=== PATIENT | male | born 1960 | race Caucasian/White ===

== ENCOUNTER 2024-06-12 20:19 | Observation (INO) | payer BC ==
[2024-06-12] MEDS ORDERED: dilTIAZem 25 MG/5 ML VIAL ONE (21:05)
[2024-06-12 21:12] LABS: #Basophils Less than 0.03 10x3/uL (0.0-0.2); %Basophils 0.2 % (0.0-1.0); %Eosinophils 0.6 % (0.0-10.0); %Lymphocytes 2.6 % (21.0-51.0); %Monocytes 3.8 % (0.0-10.0); %Neutrophils 92.2 % (42.0-75.0); Hematocrit 41.3 % (42.0-52.0); Hemoglobin 13.6 g/dL (14.0-18.0); Mean Corpuscular HGB CONC 32.9 g/dL (32.0-36.0); Mean Corpuscular Hemoglobin 35.2 pg (27.0-31.0); Mean Platelet Volume 9.6 fL (7.4-10.4); Platelet Count 352 10x3/uL (130-400); RBC Distribution Width 11.7 % (11.5-14.5); Red Blood Cell (RBC) Count 3.86 mill/uL (4.70-6.10)
[2024-06-12 21:31] LABS: Prothrombin Time 13.4 sec (12.0-14.7)
[2024-06-12 21:32] LABS: PTT 31.1 sec (22.9-36.1)
[2024-06-12 21:33] LABS: ALT (SGPT) 66 U/L (8-55); AST (SGOT) 33 U/L (5-34); Albumin 3.4 g/dL (3.4-4.8); Alkaline Phosphatase 61 U/L (40-110); Anion Gap 17 mmol/L (10-20); BUN (Urea Nitrogen) 20 mg/dL (8.4-25.7); Bilirubin, Total 0.6 mg/dL (0.2-1.2); Calc. Creatinine Clearance 0 mL/min (70-130); Calcium 9.7 mg/dL (7.8-10.44); Carbon Dioxide 24 mmol/L (23-31); Chloride 104 mmol/L (98-107); Estimated GFR 79; Globulin 3.7 g/dL (2.4-3.5); Glucose 139 mg/dL (80-115); Potassium 4.6 mmol/L (3.5-5.1); Protein, Total 7.1 g/dL (5.8-8.1); Sodium 140 mmol/L (136-145)
[2024-06-12 21:46] LABS: Troponin I 0.241 ng/mL (< 0.028)
[2024-06-12] MEDS ORDERED: Amiodarone 150 MG/3 ML VIAL ONE (22:10)
[2024-06-12] MEDS ORDERED: Sodium Chloride 0.9% 100 ML ONE (22:11)
[2024-06-12] MEDS ORDERED: Aspirin Chewable 81 MG TAB ONE (22:18)
[2024-06-12 23:59] VITALS: BMI 31.4
[2024-06-13] MEDS: Amiodarone 450 MG, Admixture Fee 1 EACH in Dextrose 5% in Water 250 ML IVPB SCH
[2024-06-13 00:28] LABS: Troponin I 0.209 ng/mL (< 0.028)
[2024-06-13] MEDS ORDERED: Ondansetron PF 4 MG/2 ML Vial IVP PRN (03:22)
[2024-06-13 04:20] LABS: #Basophils 0.03 10x3/uL (0.0-0.2); %Basophils 0.4 % (0.0-1.0); %Eosinophils 2.2 % (0.0-10.0); %Lymphocytes 6.8 % (21.0-51.0); %Monocytes 8.9 % (0.0-10.0); %Neutrophils 81.2 % (42.0-75.0); Hematocrit 34.5 % (42.0-52.0); Hemoglobin 11.6 g/dL (14.0-18.0); Mean Corpuscular HGB CONC 33.6 g/dL (32.0-36.0); Mean Corpuscular Hemoglobin 35.2 pg (27.0-31.0); Mean Corpuscular Volume 104.5 fL (78.0-98.0); Mean Platelet Volume 10.6 fL (7.4-10.4); Platelet Count 373 10x3/uL (130-400); RBC Distribution Width 11.9 % (11.5-14.5)
[2024-06-13 04:45] LABS: Anion Gap 15 mmol/L (10-20); BUN (Urea Nitrogen) 21 mg/dL (8.4-25.7); Calc. Creatinine Clearance 131 mL/min (70-130); Carbon Dioxide 23 mmol/L (23-31); Cardiac Risk 4.3 (Less than 4.5); Chloride 105 mmol/L (98-107); Cholesterol 128 mg/dl (< 200 Desired); Estimated GFR 98; Glucose 104 mg/dL (80-115); HDL Cholesterol 30 mg/dL (>60 Neg Risk); LDL Cholesterol, Calculated 81 mg/dL; Potassium 5.7 mmol/L (3.5-5.1); Sodium 137 mmol/L (136-145); Triglycerides 85 mg/dL (Less than 150)
[2024-06-13 04:46] LABS: Troponin I 0.229 ng/mL (< 0.028)
[2024-06-13] MEDS ORDERED: Famotidine 20 MG TAB ONE (08:31)
[2024-06-13] MEDS ORDERED: Enoxaparin 40 MG (0.4 mL) SYRINGE ONE (08:32)
[2024-06-13] MEDS: Enoxaparin 40 MG (0.4 mL) SYRINGE SC SCH (08:35)
[2024-06-13] MEDS: Famotidine 20 MG TAB PO SCH (08:35)
[2024-06-13] MEDS ORDERED: Aspirin 81 mg Enteric Coated Tablet ONE (08:41)
[2024-06-13] MEDS: Aspirin 81 mg Enteric Coated Tablet PO SCH (08:42)
[2024-06-13 08:44] VITALS: BP 132/67; TEMP 97.8
[2024-06-13 09:00] LABS: Potassium 4.1 mmol/L (3.5-5.1)
[2024-06-13 09:04] LABS: Troponin I 0.253 ng/mL (< 0.028)
[2024-06-13] MEDS: Ezetimibe 10 MG TAB PO SCH (09:30)
[2024-06-13 11:52] LABS: Troponin I 0.259 ng/mL (< 0.028)
[2024-06-13] MEDS ORDERED: Amiodarone 200 MG TAB PO SCH (15:00)
[2024-06-13] MEDS ORDERED: Atorvastatin Calcium 40 MG TAB PO SCH (21:00)
[2024-06-20] MEDS ORDERED: Amiodarone 200 MG TAB PO SCH (21:00)
[2024-07-05] MEDS ORDERED: Amiodarone 200 MG TAB PO SCH (09:00)
== END 2024-06-13 12:37 | disposition home or self-care (01) ==
LOC: ERS 20:19 → ERHOLD 22:15 → INTOOBSV 22:15 → ERHOLD 22:20
PROVIDERS: ADMIT Hospitalist; ATTEND Student in an Organized Health Care Education/Training Program
DX: I48.92 Unspecified atrial flutter (principal); I25.10 Atherosclerotic heart disease of native coronary artery without angina pectoris; R00.0 Tachycardia, unspecified; I49.3 Ventricular premature depolarization; G70.00 Myasthenia gravis without (acute) exacerbation; E78.5 Hyperlipidemia, unspecified; I10 Essential (primary) hypertension; E03.9 Hypothyroidism, unspecified; I48.91 Unspecified atrial fibrillation; Z95.1 Presence of aortocoronary bypass graft; Z79.82 Long term (current) use of aspirin; Z88.0 Allergy status to penicillin
CPT/HCPCS: 36415; 71045; 80048; 80053; 80061; 84443; 84484; 85025; 85610; 85730; 93005; 96374; 96375; G0378; J0282; J1650; J7070

== ENCOUNTER 2024-06-19 10:52 | Day surgery (SDC) | payer BC ==
[2024-06-16 11:27] VITALS: BMI 30.4
[2024-06-19 12:10] LABS: #Basophils 0.06 10x3/uL (0.0-0.2); %Basophils 0.6 % (0.0-1.0); %Eosinophils 3.6 % (0.0-10.0); %Monocytes 10.1 % (0.0-10.0); %Neutrophils 77.4 % (42.0-75.0); Hematocrit 37.4 % (42.0-52.0); Hemoglobin 12.2 g/dL (14.0-18.0); Mean Corpuscular HGB CONC 32.6 g/dL (32.0-36.0); Mean Corpuscular Hemoglobin 35.1 pg (27.0-31.0); Mean Corpuscular Volume 107.5 fL (78.0-98.0); Mean Platelet Volume 9.1 fL (7.4-10.4); Platelet Count 400 10x3/uL (130-400); RBC Distribution Width 12.2 % (11.5-14.5); Red Blood Cell (RBC) Count 3.48 mill/uL (4.70-6.10)
[2024-06-19 12:30] LABS: Anion Gap 12 mmol/L (10-20); BUN (Urea Nitrogen) 19 mg/dL (8.4-25.7); Calc. Creatinine Clearance 129 mL/min (70-130); Calcium 9.5 mg/dL (7.8-10.44); Carbon Dioxide 27 mmol/L (23-31); Chloride 107 mmol/L (98-107); Estimated GFR 97; Glucose 89 mg/dL (80-115); INR-International Normal Ratio 1.1; Potassium 3.8 mmol/L (3.5-5.1); Prothrombin Time 13.8 sec (12.0-14.7); Sodium 142 mmol/L (136-145)
[2024-06-19] MEDS ORDERED: Rocuronium Bromide 10 MG/ML (10ML VIAL) ONE (12:30)
[2024-06-19 12:31] LABS: PTT 30.5 sec (22.9-36.1)
[2024-06-19] MEDS ORDERED: fentaNYL 50 mcg/mL 1 mL Vial ONE (13:47)
[2024-06-19] MEDS ORDERED: PROPOFOL 20 ML ONE (13:47)
[2024-06-19] MEDS ORDERED: Ondansetron PF 4 MG/2 ML Vial ONE (13:47)
[2024-06-19] MEDS ORDERED: Hydrocortisone Sod Succ/PF 100 mg/2 ml Vial ONE (13:47)
[2024-06-19] MEDS ORDERED: Vasopressin 20 UNITS/ML VIAL ONE (14:36)
[2024-06-19] MEDS ORDERED: Phenylephrine 40 MG/NS 250 ML 250 ML ONE (14:36)
[2024-06-19] MEDS ORDERED: DOPamine 400 MG/D5W 250 ML 250 ML ONE (15:06)
[2024-06-19] MEDS ORDERED: Ketorolac Tromethamine 30 MG (1 mL) VIAL ONE (15:51)
[2024-06-19] MEDS ORDERED: Acetaminophen 325 MG TAB ONE (16:57)
== END 2024-06-19 18:35 | disposition home or self-care (01) ==
LOC: SDC 10:52
PROVIDERS: ATTEND Internal Medicine Cardiovascular Disease
PROC: 02583ZZ Destruction of Conduction Mechanism, Percutaneous Approach (ICD-10-PCS; principal; 2024-06-19)
PROC: B246ZZ4 Ultrasonography of Right and Left Heart, Transesophageal (ICD-10-PCS; principal; 2024-06-19)
DX: I48.0 Paroxysmal atrial fibrillation (principal); I25.10 Atherosclerotic heart disease of native coronary artery without angina pectoris; I49.3 Ventricular premature depolarization; G70.00 Myasthenia gravis without (acute) exacerbation; Z70.2 Counseling related to sexual behavior and orientation of third party; Z79.82 Long term (current) use of aspirin; Z79.899 Other long term (current) drug therapy; Z95.1 Presence of aortocoronary bypass graft; Z95.818 Presence of other cardiac implants and grafts; Z88.0 Allergy status to penicillin; Z88.8 Allergy status to other drugs, medicaments and biological substances
CPT/HCPCS: 80048; 85025; 85610; 85730; 93005; 93010; 93312; 93623; 93653; C1730; C1732; C1760; C1894; J1265; J1720; J1885; J2405; J2704; J3010